=== PATIENT | male | born 1965 | race Caucasian/White ===

== ENCOUNTER 2018-03-20 10:26 | Day surgery (SDC) | payer BC ==
[~2018-03-20 10:26] MED LIST: Lactated Ringers 1,000 ML IV SCH; Midazolam 1 MG/ML 2 ML SDV ONE; Propofol 200 MG/20 ML SDV ONE; Sodium Chloride 0.9% 10 ML Syringe FLUSH PRN
[2018-03-20] MEDS ORDERED: Propofol 200 MG/20 ML SDV ONE (12:45)
[2018-03-20] MEDS ORDERED: Midazolam 1 MG/ML 2 ML SDV ONE (12:45)
--- NOTE | 2018-03-20 12:48 | PCM.PN ---
- General Info Date of Service: 03/20/18 - Review of Systems Systems Review Comment:: 53-year-old male referred for his initial screening colonoscopy. He is medically stable to proceed today with no significant recent changes to his health status. He denies any GI symptoms. He also denies any known family history of colon cancer. His recent history and physical is reviewed and no significant changes are noted.I discussed the proposed colonoscopy with the patient. Risks such as but not limited to bleeding and GI injury reviewed. He appears to understand and agrees to proceed. - Patient Data Vitals - Most Recent: Last Vital Signs Temp 97.8 F 03/20/18 11:15 Pulse 54 L 03/20/18 11:15 Resp 18 03/20/18 11:15 BP 114/69 03/20/18 11:15 Pulse Ox 98 03/20/18 11:15 Weight - Most Recent: 79.832 kg Med Orders - Current: Current Medications Lactated Ringer's (Ringers, Lactated) 1,000 mls @ 125 mls/hr IV ASDIRECTED PETER Last Admin: 03/20/18 11:37 Dose: 125 mls/hr Sodium Chloride (Saline Flush) 10 ml FLUSH ASDIRECTED PRN PRN Reason: Keep Vein Open Discontinued Medications Midazolam HCl (Versed 1 Mg/Ml) Confirm Administered Dose 2 mg .ROUTE .STK-MED ONE Stop: 03/20/18 08:17 Propofol (Diprivan 20 Ml) Confirm Administered Dose 200 mg .ROUTE .STK-MED ONE Stop: 03/20/18 08:18 - Problem List Review Problem List Initiated/Reviewed/Updated: Yes - Assessment Assessment:: colon cancer screening - Plan Plan:: Colonoscopy
--- NOTE | 2018-03-20 13:34 | PCM.OPNOTE ---
- General Post-Op/Procedure Note Date of Surgery/Procedure: 03/20/18 Operative Procedure(s): colonoscopy Findings: normal colon Pre Op Diagnosis: colon cancer screening Post-Op Diagnosis: normal colon Anesthesia Technique: MAC Primary Surgeon: Johnathan Gustafson Pathology: none Output, Urine Amount: 0 EBL in mLs: 0 Complications: None Condition: Good
--- NOTE | 2018-03-20 14:45 | OR ---
Date of Procedure: 03/20/2018 REFERRING PROVIDER: Evette Mckinley PA-C PREOPERATIVE DIAGNOSIS: Colon cancer screening. POSTOPERATIVE DIAGNOSIS: Normal colon. OPERATIONS PERFORMED: Colonoscopy. INDICATIONS FOR SURGERY: This 53-year-old male presents today for his initial screening colonoscopy. He denies any family history of colon cancer and also denies any recent GI symptoms. FINDINGS: The patient's colon appears normal. No polyps are seen today. DESCRIPTION OF PROCEDURE: The patient was taken to the operating room. He was given intravenous sedation, and with him in the left lateral decubitus position, digital rectal exam was performed showing no rectal masses. The Olympus colonoscope was inserted into the rectum. Retroflexed examination of the rectal canal was performed. The scope was then carefully advanced under direct visualization through the entire length of the colon until the cecum was reached. Cecal acquisition was confirmed by noting the normal internal cecal anatomy including the appendiceal orifice and ileocecal valve. The light was also noted to transilluminate the abdominal wall in the right lower quadrant. After the cecum was examined, the scope was slowly withdrawn sequentially re- examining the colonic segments until the entire colon and rectum had been fully examined. The scope was removed, and the patient was taken from the operating room in satisfactory condition. ESTIMATED BLOOD LOSS: Zero. COMPLICATIONS: None. PROGNOSIS: Good. LILIAM Gustafson MD /[id number]
== END 2018-03-20 14:17 | disposition home or self-care (01) ==
LOC: LL.SDS 10:26
PROVIDERS: ATTEND Surgery
DX: Z12.11 Encounter for screening for malignant neoplasm of colon (principal)
CPT/HCPCS: 45378; J2250; J2704; J7120